=== PATIENT | female | born 1960 | race Hispanic/Latino ===

== ENCOUNTER → 2020-02-19 | Day surgery (SDC) | payer BC, OTHER ==
[2020-02-16 15:25] LABS: BASOPHILS # (AUTO) 0.1 (0.0-0.1); BASOPHILS % 0.6 % (0.0-1.0); EOSINOPHILS # (AUTO) 0.3 (0.0-0.4); EOSINOPHILS % 3.4 % (0.0-6.0); HEMATOCRIT 37.7 % (34.2-44.1); HEMOGLOBIN 11.8 g/dL (12.0-16.0); LYMPHOCYTES # (AUTO) 2.5 (1.0-3.2); LYMPHOCYTES % 26.1 % (18.0-39.1); MEAN CORPUSCULAR HGB CONC 31.3 g/dL (31-35); MEAN CORPUSCULAR VOLUME 89.3 fL (81-99); MONOCYTES # (AUTO) 0.5 (0.2-0.8); MONOCYTES % 5.6 % (4.4-11.3); NEUTROPHILS # (AUTO) 6.1 (2.1-6.9); NEUTROPHILS % 63.9 % (38.7-80.0); PLATELET COUNT 230 x10e3/uL (140-360); RED BLOOD COUNT 4.22 x10e6/uL (3.6-5.1); RED CELL DISTRIBUTION WIDTH 13.1 % (11.7-14.4)
[2020-02-16 15:41] LABS: ANION GAP 11.1 mmol/L (8-16); CREATININE, SERUM 1.12 mg/dL (0.57-1.11); POTASSIUM 4.1 mmol/L (3.5-5.1)
[~2020-02-19] MED LIST: BIOTIN800 MCG PO; CEFTRIAXONE SOD 1 GM/NS 50 ML 50 ML IV ONE; DEXAMETHASONE SOD PHOS INJ 4 MG/ML VIAL ONE; FENTANYL CITRATE/PF 100MCG/2 ML INJ ONE; LIDOCAINE HCL 2% LOCAL INJ 5 ML SDV VIAL INJ ONE; MIDAZOLAM HCL 2 MG/2 ML VIAL ONE; OCUVITE TABLET1 EAC1 PO; OMEGA 3 1,0001 EACH PO; ONDANSETRON HCL INJ 2MG/ML 2ML 2 MG/ML VIAL ONE; PROPOFOL IV EMULSION 10 MG/ML 20 ML VIAL ONE; SEVOFLURANE INHAL SOLN 250 ML PEN BTL ONE; VITAMIN B-121000 MCG PO; VITAMIN D3125 MCG PO
[2020-02-19 08:45] VITALS: BP 154/77
--- NOTE | 2020-02-19 09:40 | Operative Report ---
DATE OF PROCEDURE: 02/19/2020 SURGEON: Arnulfo Easton MD PREOPERATIVE DIAGNOSIS: Right kidney stone. POSTOPERATIVE DIAGNOSIS: Right kidney stone. OPERATIVE PROCEDURE PERFORMED: Extracorporeal shock wave lithotripsy. ANESTHESIA: General. ESTIMATED BLOOD LOSS: Minimal. INDICATIONS: Ms. Jovana Lal is a 59-year-old woman with a history of bilateral kidney stones, who presents with increasing pain and recent worsening of her hydronephrosis on the right. She now presents for management of this problem. PROCEDURE IN DETAIL: The patient brought to the operating room, placed in supine position. After initiation of general anesthesia, she was prepped and draped in the usual sterile fashion. Fluoroscopy heads were focused on the stones, which were in the pelvis and the right lower pole. The shock wave lithotripsy machine was engaged and the patient received a total of 3000 shocks spread over the 4 stones she had in the pelvis and the lower pole. All the stones appeared to break up by fluoroscopy. Before and after fluoroscopic photos were demonstrable. Anesthesia was reversed and she was transferred to bed and taken to the postanesthesia care unit in good condition. Of note, the instrument count was correct at the conclusion of the case. Arnulfo Easton MD HLW/MODL /[id number]
== END | disposition home or self-care (01) ==
LOC: OR 05:30
PROVIDERS: ATTEND Urology
DX: N20.0 Calculus of kidney (principal); N13.30 Unspecified hydronephrosis; Z01.810 Encounter for preprocedural cardiovascular examination; Z01.812 Encounter for preprocedural laboratory examination; Z11.59 Encounter for screening for other viral diseases; Z68.41 Body mass index [BMI] 40.0-44.9, adult
CPT/HCPCS: 36415; 50590; 80048; 85025; 87635; 93005; J0696; J1100; J2001; J2250; J2405; J2704; J3010